=== PATIENT | female | born 1985 | race Hispanic/Latino ===

== ENCOUNTER 2017-01-09 14:46 | Emergency (ER) | payer MEDICAID ==
[~2017-01-09] VITALS: Ht 162.6 cm; Wt 72.7 kg
[~2017-01-09 14:46] MED LIST: FERR256T PO; IBUP-1827 PO; OXYC1TAB24 PO; PREN1CAP15 PO
[2017-01-09 15:02] VITALS: BP 139/89; PULSE 102; RESP 15; O2SAT 100
[2017-01-09] MEDS ORDERED: Ketorolac 30 mg/mL 2 mL Inj IM ONE (19:15)
--- NOTE | 2017-01-09 19:30 | ED.REPORT ---
HPI-Extremity Problem Lower Date of Service Jan 09, 2017 ED Provider: Varsha Samuel Nursing Notes Stated Complaint: FOOT PAIN Chief Complaint: Extremity Trauma Allergies: Coded Allergies: No Known Allergies (Verified , 01/09/17) Scheduled PRN Ibuprofen (Ibuprofen) 600 Mg Tablet 600 MG PO QID PRN PRN For Pain Methocarbamol (Methocarbamol) 750 Mg Tablet 750 MG PO QID PRN PRN For Spasm oxyCODONE-Acetaminophen 5-325 mg (oxyCODONE-Acetaminophen 5-325 mg) 1 Each Tablet 1 TAB PO Q4H PRN PRN For Pain Miscellaneous Medications FERROUS GLUC-Expunged Drug, Do Not Renew! (IRON-Expunged Drug, Do Not Renew!) 256 Mg Tablet 256 MG PO NO.25/IRON/FA #6/DHA-Expunged Drug, (PRENA1-Expunged Drug, Do Not Renew !) 1 Each Capsule 1 EACH PO General Time Seen by MD: 17:31 Chief Complaint Hip injury right, Thigh injury right Right hip and leg pain x 4 days no known injury. Also complains of right upper arm pain. Hx Obtained From: Patient, Bodybuilder Arrived By: Walk-in Onset Occurred: 4 days ago Symptom Duration: Since onset Caused by: Mechanism unknown Context: Occurred at: Home injury Location: : Hip right: Thigh right Quality: Aching Severity: Current: Moderate Severity: Maximum: Moderate Associated with: Reports: Cramping, Muscle pain, Denies: "Pop" felt or heard, Abdominal pain, Bleeding, Difficulty breathing, Dyspnea, Fever, Hematuria, Joint swelling, Nausea, Neuro symptoms pre-arriv, Swelling, Unable to bear weight, Unable to move joint Pertinent Negative: Pt denies other symptoms Exacerbated by: Range of motion Pertinent Negative: Relieved by nothing Recent Healthcare: No recent doctor visit Similar Sx Previous: No Past Medical History Past Medical History H/o HSV1 and fatty infiltration of the liver Past Surgical History Denies h/o any procedures Smoking History Unknown if Ever Smoker Ambulatory Status Independent Review of Systems Basic Review of Systems Eyes: Vision NL, No discharge ENT: Hearing NL, No pain, No nasal congestion, No pharyngeal pain Respiratory: No shortness of breath, No cough, No wheeze Cardiovascular: No chest pain, No dyspnea on exertion, No orthopnea, No parox noct dyspnea, No palpitations GI: No abdominal pain, No anorexia, No nausea, No vomiting : No dysuria, No frequency Hematologic: No bleeding, No bruising Endocrine: No cold intolerance, No heat intolerance, No weight gain, No weight loss Allergy / Immune: No allergy Psychiatric: Normal thought content Constitutional: Denies: Fatigue, Fever Musculoskeletal: Reports: Extremity pain, Myalgia, Denies: Back pain, Extremity swelling, Joint pain, Joint swelling, Lumbar pain Skin: Denies Bruising, Denies Rash, Denies Swelling Neurologic: Denies: Confusion, Headache Complete sys rev & neg: except as marked. Physical Exam Initial Vital Signs Vital Signs (First) Date Time Temp Pulse Resp B/P Pulse Ox O2 Delivery O2 Flow Rate FiO2 01/09/17 15:02 37.7 102 15 139/89 100 Room Air Initial VS: Reviewed General/Constitutional: Well-developed, Well-nourished Head / Eyes: Atraumatic, Normocephalic, PERRL ENT: Mucous membranes moist, Conjunctiva normal, No scleral icterus Neck: Supple Respiratory: No respiratory distress Cardiovascular: Intact distal pulses Abdomen / GI: No distention Upper Extremities: Vascular intact, Neuro intact, No swelling, No tenderness Skin: Warm, Dry, No cyanosis Neurologic: Alert, Oriented, Nonfocal Psychiatric: Mood/affect normal, Behavior normal, Normal thought content Lower Extremity / Pelvis / MS: Atraumatic, Inspection NL, No swelling, No erythema Pelvis: Positive: Tender R lateral, Tender an-sup iliac crest Right Hip: Negative: Ecchymosis present, Leg shortened, Tenderness present..., Warmth present Right Thigh: Positive: Antalgic gait, Tenderness present... (Moderate), Negative: Erythema present, Pulse popliteal decreased, Pulses distal decreased, Warmth present Joint above & below: affected area is NL. tenderness to right iliotibial band upon palpation. ROM decreased due to pain, +CSM distally Upper Extremity / MS: Atraumatic, Inspection NL, Full range of motion, No swelling Right Upper Arm: Positive: Tenderness present... (tenderness to brachial insertion, no deformity or decrease in strength, +CSM distally), Negative: Ecchymosis present, Erythema present, Neuro deficit present, Pulse brachial absent, Pulses distal absent, Swelling present..., Warmth present Interpretation & Diagnostics Lab Results Interpretation Test 01/09/17 17:00 Hold Urine Received (Received) Discharge & Departure Impression: Primary Impression: Iliotibial band syndrome of right side Additional Impression: Biceps tendonitis on right Disposition: Home Discharge Condition All VS Reviewed: Yes Patient Instructions: Hip Bursitis (ED) Additional Instructions: Take the medications as directed. Ice alternated with heat. Gentle stretches. Follow up with your regular doctor or return to the ER for any other concerns. Referrals: [facility] (PCP) EDSupervising Provider for APC: Jim Gutierrez MD, Lora L ARNP Jan 09, 2017 19:30
[2017-01-09] MEDS ORDERED: METH750T3 PO (19:31)
[2017-01-09 19:54] VITALS: BP 115/80; PULSE 78; RESP 18; O2SAT 100
== END 2017-01-09 20:05 | disposition home or self-care (01) ==
LOC: SED 14:46
DX: M76.31 Iliotibial band syndrome, right leg (principal); M75.21 Bicipital tendinitis, right shoulder
CPT/HCPCS: 81025; 96372; 99284; J1885